=== PATIENT | male | born 1990 | race Caucasian/White ===

== ENCOUNTER 2019-12-16 09:55 | Outpatient (CLI) | payer OTHER ==
--- NOTE | 2019-12-16 12:39 | MRI Report ---
PROCEDURE: Knee RT W/O INDICATIONS: RT KNEE PAIN TECHNIQUE: Noncontrast sagittal PD fast spin echo and T2 fast spin echo with fat saturation, sagittal 3-D spoile d GE with fat saturation; coronal T1 spin echo and PD fast spin echo with fat saturation, and axial P D fast spin echo with fat saturation through the knee. COMPARISON: None. FINDINGS: Image quality: Excellent. Menisci: The medial and lateral menisci are intact. There is no meniscal extrusion. Cruciate ligaments: The anterior and posterior cruciate ligaments appear intact. Medial structures: The medial collateral ligament appears intact. The semimembranosus tendon insert ions appear intact. Visualized portions of the pes anserinus tendons appear normal. Lateral structures: The lateral collateral ligament, long and short heads of the biceps femoris tend on appear intact. The popliteus tendon appears intact. Iliotibial band appears normal. Anterior structures: The quadriceps and patellar tendons appear intact. Patellar alignment is yovany l. No femoral trochlear dysplasia or ventral trochlear prominence. No edema in the infrapatellar fa t pad. Bones and cartilage: No bone marrow contusion or acute fracture. The cartilage of the medial and la teral femorotibial compartments appears normal in thickness. There is full-thickness cartilage fissu ring in the median ridge/lateral facet of the patella with associated cartilage delamination measurin g 4 x 5 mm. Additional deep cartilage fissuring is seen in the medial patellar facet. There is subcho ndral edema in the patella. Joint space and soft tissues: There is a small joint effusion. There is a small medial popliteal cy st. IMPRESSION: 1. Full-thickness cartilage fissuring and cartilage delamination is seen at the median ridge/lateral facet of the patella measuring 4 x 5 mm. Full-thickness cartilage fissuring is also seen in the medi al patellar facet. There is subchondral edema in the patella. 2. Intact cruciate and collateral ligaments. No meniscal tear is seen. 3. Small joint effusion. Small medial popliteal cyst. Reviewed by: Jean Marie Parnell MD on 12/16/2019 12:38 PM PDT Approved by: Jean Marie Parnell MD on 12/16/2019 12:38 PM PDT Station ID: [id number]
== END 2019-12-16 09:56 | disposition home or self-care (01) ==
LOC: DI 09:55
PROVIDERS: ATTEND Student in an Organized Health Care Education/Training Program
DX: M25.561 Pain in right knee (principal); M25.461 Effusion, right knee; M71.21 Synovial cyst of popliteal space [Baker], right knee

== ENCOUNTER 2020-03-30 06:16 | Day surgery (SDC) | payer OTHER ==
[2020-03-30] MEDS ORDERED: ceFAZolin 2 GM/50 ML 2 GM/50 ML BAG IV ONE (06:38)
[2020-03-30] MEDS ORDERED: LACTATED RINGERS 1,000 ML IV ONE ×2 (06:45→09:17)
[2020-03-30] MEDS ORDERED: LACTATED RINGERS 200 ML IV ONE (06:45)
[2020-03-30] MEDS ORDERED: ONDANSETRON 4 MG/2 ML VIAL ONE (06:56)
[2020-03-30] MEDS ORDERED: ROPIVACAINE 0.5% PF 20 ML AMPULE ONE (06:56)
[2020-03-30] MEDS ORDERED: KETOROLAC 30 MG/ML VIAL ONE (06:56)
[2020-03-30] MEDS ORDERED: PROPOFOL 200 MG/20 ML VIAL IVP ONE (06:56)
[2020-03-30] MEDS ORDERED: LIDOCAINE-MPF 2% 5 ML VIAL ONE (06:56)
[2020-03-30] MEDS ORDERED: DEXAMETHASONE 4 MG/ML VIAL ONE (06:56)
[2020-03-30] MEDS ORDERED: HYDROmorphone 0.5 MG/0.5 ML SYRINGE IVP PRN (07:08)
[2020-03-30] MEDS ORDERED: MORPHINE 2 MG/ML CARPUJECT IVP PRN (07:08)
[2020-03-30] MEDS ORDERED: ATROPINE ABBOJECT 1 MG/10 ML SYRINGE IVP PRN (07:08)
[2020-03-30] MEDS ORDERED: METOCLOPRAMIDE 10 MG/2 ML VIAL IVP PRN (07:08)
[2020-03-30] MEDS ORDERED: NALOXONE 0.4 MG/ML VIAL IVP PRN (07:08)
[2020-03-30] MEDS ORDERED: ePHEDrine 50 MG/ML VIAL IVP PRN (07:08)
[2020-03-30] MEDS ORDERED: ONDANSETRON 4 MG/2 ML VIAL IVP PRN ×2 (07:08→09:42)
[2020-03-30] MEDS ORDERED: fentaNYL 100 MCG/2 ML VIAL IVP PRN (07:08)
--- NOTE | 2020-03-30 07:11 | ANESTHESIA ---
Pre-Anesthesia VS, & Labs - Diagnosis Right Knee Instability - Procedure Right Knee Arthroscopy chondroplasty Vital Signs: Temp Pulse Resp BP Pulse Ox 36.4 C L 56 L 16 126/81 H 100 03/30/20 06:31 03/30/20 06:31 03/30/20 06:31 03/30/20 06:31 03/30/20 06:31 Height: 6 ft 2 in Weight (kg): 88 kg Body Mass Index: 24.9 BMI Classification: Healthy weight Home Medications and Allergies Home Medications: Ambulatory Orders No Known Home Medications 03/27/20 Active Medications Atropine Sulfate (Atropine Abboject 1 Mg/10 Ml Syringe) 0.5 mg IVP Q5M PRN PRN Reason: Bradycardia Stop: 03/31/20 07:08 Ephedrine Sulfate (Ephedrine 50 Mg/Ml Vial) 10 mg IVP Q5M PRN PRN Reason: HYPOTENSION Stop: 03/31/20 07:08 Fentanyl (Fentanyl 100 Mcg/2 Ml Vial) 25 - 50 mcg IVP Q5M PRN PRN Reason: BREAKTHROUGH PAIN (2nd Choice) Stop: 03/31/20 07:08 Hydromorphone HCl (Hydromorphone 0.5 Mg/0.5 Ml Syringe) 0.2 - 0.6 mg IVP Q5M PRN PRN Reason: PAIN (First Choice) Stop: 03/31/20 07:08 Lactated Ringer's (Lr) 1,000 mls @ 100 mls/hr IV .Q10H CONCEPCION Stop: 03/30/20 17:59 Metoclopramide HCl (Metoclopramide 10 Mg/2 Ml Vial) 10 mg IVP Q6HR PRN PRN Reason: N/V not relieved by Zofran Morphine Sulfate (Morphine 2 Mg/Ml Carpuject) 2 - 4 mg IVP Q5M PRN PRN Reason: PAIN (3rd Choice) Stop: 03/31/20 07:08 Naloxone HCl (Naloxone 0.4 Mg/Ml Vial) 0.1 mg IVP Q2M PRN PRN Reason: RESP RATE <8 Stop: 03/31/20 07:08 Ondansetron HCl (Ondansetron 4 Mg/2 Ml Vial) 4 mg IVP ONCE PRN PRN Reason: N/V (First Choice) Stop: 03/31/20 07:08 No Known Home Medications 03/27/20 Allergies/Adverse Reactions: Allergies Allergy/AdvReac Type Severity Reaction Status Date / Time No Known Drug Allergies Allergy Verified 03/27/20 08:02 Anes History & Medical History - Anesthetic History Anesthesia Complications: reports: No previous complications Family history of Anesthesia Complications: Denies Family history of Malignant Hyperthermia: Denies - Medical History Cardiovascular: reports: None Pulmonary: reports: None Gastrointestinal: reports: None Urinary: reports: None Musculoskeletal: reports: Other Skin: reports: None - Surgical History General: Appendectomy Exam General: Alert, Oriented x3, Cooperative, No acute distress Dental: WNL Mouth Openin Fingerbreadth Neck Mobility: Normal Mallampati classification: I Thyromental Distance: 4-6 cm Respiratory: Lungs clear Cardiovascular: Regular rate Mental/Cognitive Status: Alert/Oriented X3, Normal for patient Cognitive Status: Within normal limits Plan Anesthesia Type: General Consent for Procedure(s) Verified and Reviewed: Yes Code Status: Attempt Resuscitation ASA classification: 1-Healthy patient Is this case an emergency?: No
[2020-03-30] MEDS ORDERED: BUPIVACAINE 0.25% PF 30 ML VIAL ONE ×2 (07:23→08:21)
[2020-03-30] MEDS ORDERED: EPINEPHrine 1 MG/ML AMP ONE (07:23)
[2020-03-30] MEDS ORDERED: MIDAZOLAM 2 MG/2 ML VIAL ONE (07:32)
[2020-03-30] MEDS ORDERED: LACTATED RINGERS 1,000 ML IV SCH (08:00)
[2020-03-30] MEDS ORDERED: BUPIVACAINE 0.25% PF 30 ML VIAL SUBQ ONE ×2 (08:04→08:59)
[2020-03-30] MEDS ORDERED: oxyCODONE 5 MG TABLET PO PRN (09:42)
--- NOTE | 2020-03-30 09:56 | OPERATIVE REPORT ---
Operative Report - General Procedure Date: 03/30/20 - Procedure Note Anesthesia Technique: General LMA Estimated Blood Loss (mL): 5 - Other Other Information/Narrative: Date of Procedure: 30 March 2020 Planned Procedure: Right knee arthroscopy, shaving chondroplasty Pre-op diagnosis: Right knee patellar chondromalacia Procedure performed: Right knee arthroscopy, patellar shaving chondroplasty, medial plica resection Post-op diagnosis: Right knee patellar chondromalacia, prominent medial plica Primary Surgeon: ERICK IBARRA Secondary Surgeon: Shantelle Anesthesia: General, LMA EBL: 5 ml Tourniquet: 60 minutes, right thigh at 250mmHg. Arthroscopic findings right knee: 1. Patella: There is a large full-thickness central fissure along the median ridge, with undermining and loose cartilage on either side. This was debrided systematically with a combination of meniscal biters, arthroscopic curettes and the arthroscopic sucker shaver to a stable rim. Following debridement it measured approximately 20 to 25 mm superior to inferior and approximately 10 mm medial to lateral. There was a second stellate chondral lesion along the medial border of the medial patellar facet, again with slight undermining. This was also debrided with meniscal biters and the arthroscopic shaver to a stable rim, following debridement measured approximately 5 mm x 5 mm 2. Trochlea: Normal 3. Medial Compartment: Medial meniscal root intact, medial meniscus intact, medial femoral condyle and medial tibial plateau cartilage normal 4. Lateral Compartment: Lateral meniscal root intact, lateral meniscus intact, lateral femoral condyle and lateral tibial plateau cartilage normal 5. 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 The pain has generally been on again off again since that time until most recently in September 2019, when he resumed weighted squats. Since that time he has had significant retropatellar pain. Pain is exacerbated by kneeling squatting or otherwise loading the patellofemoral joint. It is interfering with his ability to run. He has undergone physical therapy, icing and NSAIDs without durable benefit. We discussed treatment to include continued nonoperative management, versus operative intervention with right knee arthroscopy and likely shaving chondroplasty. The risks, benefits, and alternatives were discussed. Risks include pain, bleeding, infection, damage to nearby structures and cartilage, lack of symptom relief, need for further surgery, DVT, PE, stroke, and . Written consent was obtained. Procedure Details: The patient was met in the pre-operative hold area. We reviewed risks, benefits, and alternatives to surgery. Consent was signed. The patient verified the surgical site as the right knee. The patient then met with anesthesia and was brought back to the operating room. The patient was placed supine on the operating table. A general anesthetic was administered and LMA was placed. A well-padded tourniquet was placed on the right thigh. The right lower extremity was then prepped and draped in the usual sterile fashion. A surgical timeout was then performed. The correct patient, the correct procedure, and the correct surgical site were confirmed by everyone in the room. Perioperative antibiotics had been administered. After surgical timeout and administration of antibiotics the Escmarch was used to exsanguinate the right lower extremity and the tourniquet was raised. An 11 blade scalpel was used to make an anteromedial and anterolateral arthroscopic portal. The arthroscope was introduced into the knee and a diagnostic arthroscopy was performed with the above-stated findings. The arthroscopic sucker shaver was inserted into the knee and a chondroplasty of the central and medial patella was performed. The cartilage was debrided to a s table rim. After debridement and chondroplasty the the size of the lesion was 20-25 mm from proximal to distal and 10 mm from medial to lateral. The smaller medial lesion measured approximately 5 mm in each direction. The arthroscopic instruments were then removed from the knee. The portals were closed with 3-0 Monocryl. 0.25% Marcaine was injected into the periarticular soft tissues. The incisions were dressed with Xeroform gauze, cotton gauze, and an ABD. The surgical drapes were removed. A thigh-high Brayden stocking was placed. The patient was awoken from anesthesia, extubated, transferred to the hospital bed, and taken to the PACU for recovery in good condition. Postoperative plan: 1. Discharge home from the same day surgery facility once the patient has met discharge criteria. 2. Advance weightbearing as tolerated, range of motion as tolerated, and wean from crutches as tolerated. 3. Return to clinic in 10-14 days for wound check. 4. Allow advancement of activities as tolerated with full clearance for all activities anticipated in 6-8 weeks postoperatively.
[2020-03-30 10:11] VITALS: BP 118/56
--- NOTE | 2020-03-30 17:00 | ANESTHESIA POST OP EVALUATION ---
Anesthesia Post Eval - Post Anesthesia Eval Vitals: Last Vital Signs Temp 36.6 C 03/30/20 09:55 Pulse 65 03/30/20 10:10 Resp 14 03/30/20 10:10 BP 118/56 L 03/30/20 10:10 Pulse Ox 100 03/30/20 10:10 CV Function Including HR & BP: positive: Stable Pain Control: positive: Satisfactory Nausea & Vomiting: positive: Negative Mental Status: positive: Patient Participates Respiratory Status: Airway Patent Hydration Status: Satisfactory Anesthesia Complications: positive: None
== END 2020-03-30 06:17 | disposition home or self-care (01) ==
LOC: SDS 06:16
PROVIDERS: ATTEND Orthopaedic Surgery
DX: M22.41 Chondromalacia patellae, right knee (principal)
CPT/HCPCS: 29877; J0690; J7120